=== PATIENT | male | born 1940 | race Caucasian/White ===

== ENCOUNTER 2016-05-23 12:14 | Inpatient (IN) ==
--- NOTE | 2016-05-23 13:43 | PROVIDER DOCUMENTATION ---
HPI-General Adult - General Source: patient - History of Present Illness -Gen Adult Nature of Presenting Problems: Pt is 75 y/o M presents to the ED with L lower leg swelling. Pt denies pain to L leg. Pt denies N/V/D. Pt states having prostate sx 9 days ago. Pt states has a urinary leg bag and always ties bad to L leg. Location of Pain/Injury: reports: none Pain Radiation: reports: no radiation Quality of Pain: reports: none Onset/Duration: reports: 2 days ago Timing: reports: still present Context/Activities at Onset: reports: light activity Modifying Factors: improves with: nothing Associated Symptoms: reports: swelling/mass in abdomen (swelling to L lower leg) . denies: anxiety, arm pain, back/neck pain, chest pain, constipation, cough, diaphoresis, diarrhea, dizziness, EENT symptoms, fatigue, fever/chills, genitourinary problems, headaches, heartburn, joint pain, loss of appetite, malaise, muscle aches, sinus congestion/drainage, nausea, rash, seizure, shortness of breath, sensory/motor loss, pain with inspiration, syncope, weakness, trouble walking Similar Symptoms Previously?: Yes Recently seen or treated by another doctor?: No <Caprice Ruff - Last Filed: 05/23/16 15:23> <Marcelino Lezama - Last Filed: 06/01/16 11:37> - General Chief Complaint: For Procedure Stated Complaint: LEFT LEG PAIN Time Seen by Provider: 05/23/16 12:35 Allergies/Adverse Reactions: Patient Allergies Allergy/AdvReac Type Severity Reaction Status Date / Time No Known Allergies Allergy Verified 05/23/16 13:18 Home Medications: Home Medication List Medication Instructions Recorded Confirmed Last Taken Type Amlodipine [Norvasc] 10 mg PO DAILY 05/23/16 05/23/16 05/23/16 08:00 History Atenolol 50 mg PO DAILY 05/23/16 05/23/16 05/23/16 08:00 History Lisinopril 5 mg PO DAILY 05/23/16 05/23/16 05/23/16 08:00 History Metformin E.r. [Glucophage Xr] 1,000 mg PO QHS 05/23/16 05/23/16 05/22/16 21:00 History Simvastatin 40 mg PO QHS 05/23/16 05/23/16 05/22/16 21:00 History Warfarin [Coumadin] 4 mg PO QHS #30 tablet 05/29/16 Unknown Rx Review of Systems - Adult - REVIEW OF SYSTEMS - ADULT Constitutional: denies: chills, fever Eyes: denies: blurred vision, double vision Ears, Nose, Mouth & Throat: denies: ear pain, nose pain, throat pain Cardiovascular: denies: chest pain, heart murmur, irregular heart rate Respiratory: denies: cough, shortness of breath, wheezing Gastrointestinal: denies: abdominal pain, diarrhea, nausea, vomiting Genitourinary: denies: dysuria, hematuria Musculoskeletal: denies: bone pain, joint pain, neck pain Integumentary: denies: hives, itching Neurological: denies: dizziness/vertigo, headache/migraines Psychiatric: reports: no symptoms reported Endocrine: reports: no symptoms reported Hematologic/Lymphatic: reports: no symptoms reported Allergic/Immunologic: reports: no symptoms reported All Other Systems: Reviewed and Negative <Caprice Ruff - Last Filed: 05/23/16 15:23> Past History - Adult - PAST MEDICAL HISTORY-ADULT Review of Records: reports: Nursing Assessment Review, Medications Reviewed, Social history reviewed & non-contributory. Major Childhood Illnesses: reports: denies history Cardiovascular: reports: HTN, hyperlipidemia Respiratory: reports: denies history Gastrointestinal: reports: denies history Obstetrical/Gynecological: reports: denies history Genitourinary: reports: prostate cancer Musculoskeletal: reports: denies history Neurological: reports: denies history Endocrine/Immune: reports: Diabetes Other Conditions: reports: denies history - PRIOR SURGERIES/PROCEDURES Surgical/Procedure History: reports: reviewed, not pertinent - IMMUNIZATION STATUS Childhood Immunizations: See Nurse Assessment Flu Vaccine: See Nurse Assessment - FAMILY HISTORY Family History: reviewed, not pertinent - SOCIAL HISTORY Smoking: denies Substance Use: denies Living Situation: family <Caprice Ruff - Last Filed: 05/23/16 15:23> Physical Exam-General - PHYSICAL EXAM-ADULT Initial Vital Signs Reviewed: Yes - CONSTITUTIONAL General Appearance: appears well, alert, no apparent distress - EYES Eyes: PERRL/EOMI, pink conjunctivae, fundi clear, no AV nicking - HEAD, EARS, NOSE, MOUTH & THROAT HENMT: normocephalic/atraumatic, moist mucous membranes, normal ENT inspection, TMs normal, pharynx normal - NECK Neck: non-tender, full range of motion, supple, normal inspection - RESPIRATORY Respiratory: chest non-tender, lungs clear, normal breath sounds, no pleuratic chest pain, no respiratory distress, no accessory muscle use - CARDIOVASCULAR Cardiovascular: normal peripheral pulses, regular rate, rhythm, no edema, no gallop, no JVD, no murmur - GASTROINTESTINAL (ABDOMEN) Abdominal Exam: normal bowel sounds, non tender, soft, no organomegaly, no pulsatile mass - LYMPHATIC Lymphatic: no adenopathy - MUSCULOSKELETAL Back Exam: normal inspection, no CVA tenderness, no vertebral tenderness Extremity: normal range of motion, non-tender, normal gait, no calf tenderness, normal capillary refill, swelling (L lower leg) - SKIN Integumentary: normal color, normal turgor, warm/dry - NEUROLOGIC Neurologic: grossly normal - PSYCHIATRIC Psych/Mental Status: normal mood/affect, oriented x 3 <Caprice Ruff - Last Filed: 05/23/16 15:23> Progress - PLAN OF CARE/RESULTS Progress/Plan/Lab Results: Orders Category Date Time Status Venous U/S Bilateral Legs [CV] Stat Ther 05/23/16 12:34 Ordered Vital Signs - 24 hr 05/23/16 12:23 Temperature 97.7 F Pulse Rate 67 Respiratory 17 Rate Blood Pressure 125/46 O2 Sat by Pulse 100 Oximetry - ULTRASOUND (By Radiology) 1 US Study: other (venous bilateral) Impression: Abnormal US Results: bilateral DVT per US - CONSULTS/PCP/HOSPITALIST Notification #1 *Consult/PCP/Hospitalist*: Dr. Wells Time Discussed: 15:24 (Dr. Wells accepted admit ) Reason/Comments: Dr. Nuno consulted with Dr. Wells about admit Consult Disposition: Admit <Caprice Ruff - Last Filed: 05/23/16 15:23> Departure <Caprice Ruff - Last Filed: 05/23/16 15:23> - Departure Time of Disposition Order: 15:25 Certified Medical Emergency: Emergent <Marcelino Lezama - Last Filed: 06/01/16 11:37> - Departure DIAGNOSIS: DVT (deep venous thrombosis) Qualifiers: DVT location: lower extremity Affected thrombotic vein of extremity: other lower extremity vein Laterality: bilateral Chronicity: acute Qualified Code(s): I82.493 - Acute embolism and thrombosis of other specified deep vein of lower extremity, bilateral Disposition: ADMITTED INPATIENT 09 Condition: Stable Attestation - Scribe Verification/Attestation Scribe:: Caprice Ruff Acting as Scribe for:: Kevin Nuno Scribe documention review:: This chart was documented by a scribe and accurately reflects the service the provider performed and the decisions made by the provider. <Caprice Ruff - Last Filed: 05/23/16 15:23> - Scribe Verification/Attestation Scribe:: Marcelino Lezama Acting as Scribe for:: Kevin Nuno Scribe documention review:: This chart was documented by a scribe and accurately reflects the service the provider performed and the decisions made by the provider. <Marcelino Lezama - Last Filed: 06/01/16 11:37> Physician Attestation - Physician Attestation I, the provider, attest to the following statement:: Kevin Nuno Physician documentation Attestation:: This documentation recorded by the scribe accurately reflects the service I personally performed and the decisions made by me. <Marcelino Lezama - Last Filed: 06/01/16 11:37>
[2016-05-23] MEDS ORDERED: LOVENOX 1 MG/KG SUBQ SCH (15:25)
[2016-05-23] MEDS ORDERED: LOVENOX ONE (15:53)
[2016-05-23] MEDS ORDERED: GLUCOPHAGE XR PO SCH (17:00)
[2016-05-23] MEDS: LOVENOX SUBQ SCH (17:15)
[2016-05-23] MEDS: NS 1,000 ML IV SCH (18:07)
--- NOTE | 2016-05-23 18:12 | HISTORY AND PHYSICAL ---
HISTORY OF PRESENT ILLNESS: Mr. Chaves had prostatectomy I believe done by Dr. Dodson a week ago Wednesday which would be 8 days ago this is Wednesday and was doing well. He has a leg bag catheter. He notice though about 3 or 4 days ago some pain in the left leg. He had a little bit of pain postop but the left calf and some in the right and a little bit of swelling on the left side. He has not had any shortness of breath. No pleuritic pain. No fever or chills. He had a little tenderness or pain in the calf and he called his friend Dr. Newell who wanted him to get checked out. Dr. Szymanski saw him in the emergency room and he had an echocardiogram done and he really had extensive clot especially in the left leg but in both legs lower extremities up to the proximal thigh and extensive clot load. PAST MEDICAL HISTORY: 1. Diabetes mellitus type 2. 2. Hypertension. 3. I believe questionable hypercholesterolemia. PAST SURGICAL HISTORY: He has really not had any other surgeries done. ALLERGIES: He is not allergic to anything. No known drug allergies. FAMILY HISTORY: Noncontributory. SOCIAL HISTORY: Negative for alcohol or tobacco. , lives in [place]. The is at bedside. REVIEW OF SYSTEMS: General: No weight gain, loss. No fever, chills. HEENT: Unremarkable. Respiratory: No increased work of breathing or dyspnea. Cardiovascular: No chest pain or tachy palpitation. GI: Unremarkable. : Unremarkable other than his prostate surgery described above and Johns catheter placed. Endocrinologic, hemologic: No significant history. EXAM: Vital signs: Today temperature 97.7 degrees, pulse 67, respirations 17, blood pressure 125/46. HEENT: Pupils are equal, round, reactive. CVP less than 6 cm. Lungs: Clear in all lung padron. Cardiovascular: Regular rhythm, rate without murmur or S3. Abdomen: Soft. Skin: Warm and dry. Extremities: He has a Johns catheter in place attached to left leg bag. I do not appreciate any Homans sign. He really does not complain of any tenderness on palpation around the calf and there is really minimal swelling on the left compared to the right, no pitting edema. Height 5 feet 9 inches. Weight 156 pounds. O2 saturation 100% on room air. MEDICATIONS AT HOME: He is on amlodipine 10 mg a day, atenolol 50 mg daily, lisinopril 5 mg a day, metformin ER 500 mg b.i.d., simvastatin 40 mg daily. ASSESSMENT AND PLAN: 1. Deep vein thrombosis left lower leg and I believe the report was some on the right. Plan to admit and start him on subcu Lovenox 1 mg/kg. Will plan on sending him home on Xarelto which case will probably load him with 20 mg twice a day for 21 days and then 15 mg daily following that. 2. Status post prostatectomy. Will continue his Johns catheter and keep his bag, try and keep his bag lower than his body, take it off his leg at this time. 3. Hypertension. Continue present blood pressure medicines. He is on Norvasc and atenolol, lisinopril. 4. Diabetes mellitus 2. Will check blood sugars, continue his metformin. 5. Hypercholesterolemia. Continue on simvastatin. 6. Will try and elevate his both legs, see if we can get [facility] to [facility].
--- NOTE | 2016-05-23 20:55 | Extremity Venous Study ---
PROCEDURE NAME: Venous U/S Bilateral Legs - 05/23/2016 BILATERAL LOWER EXTREMITY VENOUS IMAGE STUDY: REFERRING PHYSICIAN: Dr. Szymanski and Dr. Sanchez. CUSTOM APPLICATOR: Rianna. INTERPRETING PHYSICIAN: Dr. Szymanski. FINDINGS: The patient is 9 days post prostatectomy and has had left lower extremity swelling on imaging the common femoral, superficial femoral, deep femoral, popliteal, posterior tibial, peroneal, and greater saphenous are imaged bilaterally. The Doppler is used to evaluate the veins for spontaneity, phasicity, respiratory and distal augmentation. There is a thrombosis of the superficial femoral vein on the left extending down to the calf there is also a nonocclusive echogenic material within the right superficial femoral vein. INTERPRETATION: Deep venous thrombosis with complete occlusion of the left superficial femoral vein and partial occlusion of the right distal superficial femoral vein. The patient was taken back to the emergency department and the hospitalist was notified.
[2016-05-23] MEDS: GLUCOPHAGE XR PO SCH (21:25)
[2016-05-23] MEDS: ZOCOR PO SCH (21:25)
[2016-05-24] MEDS: LOVENOX SUBQ SCH ×2 (04:20→16:33)
[2016-05-24] MEDS: NS 1,000 ML IV SCH ×2 (04:21→16:33)
[2016-05-24 05:25] LABS: MANUAL DIFF NEEDED? NO
[2016-05-24 05:31] LABS: BASO% 0.1 % (0.0-0.8); EOS# 0.09 X1000 (0.0-0.7); HEMATOCRIT 35.4 % (42.0-52.0); HEMOGLOBIN 11.9 g/dL (14.0-18.0); IMM GRAN# 0.02 X1000 (0.0-0.04); IMM GRAN% 0.2 % (0.0-0.5); LYMPH# 1.29 X1000 (1.2-3.4); LYMPH% 14.4 % (20.5-51.1); MCH 31.1 PG (27-31); MCHC 33.6 g/dL (33-37); MCV 92.4 FL (81-99); MONO# 0.96 X1000 (0.11-0.59); MONO% 10.7 % (1.7-9.3); MPV 10.8 FL (7.4-10.4); NEUT% 73.6 % (42.2-75.2); PLT 194 X1000 (130-400); RBC 3.83 XMIL (4.7-6.1)
[2016-05-24 05:38] LABS: INR 1.07; PROTIME 11.4 Seconds (9.2-11.7)
[2016-05-24 05:43] LABS: AGAP 13; ALBUMIN 3.4 g/dL (3.5-5.0); ALKALINE PHOSPHATASE 72 U/L (32-122); BUN 15 mg/dL (8-22); CALCIUM 8.8 mg/dL (8.8-10.2); CHLORIDE 105 mmol/L (98-107); COSMO 285; GOT 13 U/L (10-34); GPT 10 U/L (10-44); MAGNESIUM 1.8 mg/dL (1.5-2.7); SODIUM 142 mmol/L (136-145); TCO2 24 mmol/L (25-35); TOTAL BILIRUBIN 0.53 mg/dL (0.20-1.00)
--- NOTE | 2016-05-24 06:54 | EKG Report ---
Test Performed on : 05/24/2016 06:03:41 AM Test Reason : chest pain Blood Pressure : / mmHG Vent. Rate : 072 BPM Atrial Rate : 072 BPM P-R Int : 176 ms QRS Dur : 084 ms QT Int : 426 ms P-R-T Axes : 052 -19 024 degrees QTc Int : 466 ms Normal sinus rhythm. Normal ECG No previous ECGs available Confirmed by Russell MARTINEZ, Chinmay Andino ([id number]) on 05/26/2016 1:36:06 PM
[2016-05-24] MEDS: NORVASC PO SCH (08:19)
[2016-05-24] MEDS: COLACE PO SCH ×2 (08:19→20:50)
[2016-05-24] MEDS: TENORMIN PO SCH (08:19)
[2016-05-24] MEDS: PRINIVIL PO SCH (08:19)
[2016-05-24] MEDS ORDERED: ZOCOR PO SCH (09:00)
[2016-05-24] MEDS ORDERED: MILK OF MAGNESIA PO ONE (11:18)
[2016-05-24] MEDS ORDERED: DULCOLAX PR PRN (11:19)
--- NOTE | 2016-05-24 11:58 | PROGRESS NOTE ---
DATE: 05/24/2016 SUBJECTIVE: He did not sleep much last night. He said that someone was always coming in to bother him. He did have some bleeding and some blood in the Johns catheter. This seems to be clearing. It is more diluted, a little darker. He is getting urine output. I told him that he could sit up in a chair and he can ambulate to the bathroom. He has not had a bowel movement since Wednesday, so that would be a couple days. So I will give him some Milk of Magnesia and Dulcolax suppository if he needs it. OBJECTIVE: Vital Signs: Afebrile, temperature 99 degrees, pulse 69, respirations 15, blood pressure 132/55. HEENT: Pupils are equal, round, react to light and accommodation. Oral and nasal mucosa unremarkable. Conjunctivae pink. Sclerae clear. Tympanic membranes intact. Neck: Supple without adenopathy or thyromegaly. Urine output has been 975 mL. I Os the balance has been positive 397. ASSESSMENT AND PLAN: 1. Extensive deep venous thrombosis, so will start him on Lovenox bridging to Xarelto. It is what he wants to use. Noted his electrocardiogram is normal. No sign of strain pattern. No sign of pulmonary thromboemboli/ Dr. Szymanski has read venous study, deep venous thrombosis with complete occlusion of left superficial femoral vein and partial occlusion of the right distal superficial femoral vein. The patient was taken back to the emergency department and after that was admitted. 2. Recent surgery of his prostate. Prostatectomy per Dr. Enriquez. He is having some gross hematuria, but seems to be improving.
[2016-05-24] MEDS: TYLENOL PO PRN ×2 (16:33→23:09)
--- NOTE | 2016-05-24 17:22 | CONSULTATION ---
DATE OF CONSULTATION: 05/24/2016 ATTENDING AND REFERRING PHYSICIAN: Hospitalist (Dr. Wright). HISTORY OF PRESENT ILLNESS: This 75-year-old male is about 9 days status post laparoscopic robot- assisted radical retropubic prostatectomy. At another facility. He has an indwelling Johns catheter. He states he was doing well until several days ago when he started having some pain in the left leg and some swelling. He underwent Doppler venous study that revealed bilateral lower extremity clot left side much worse than right. He was admitted for observation and anticoagulation. He and his state that early this morning he had dark blood in his urine. He states it is clearing at present. He states he has not had any problems after surgery. He states he has never had a major surgery previously and has not had any problem with blood clots. He has no history of kidney stones or other urologic problems. PAST MEDICAL HISTORY: Diabetes, hypertension, elevated cholesterol. CURRENT MEDICATIONS: Documented on the chart and include Lovenox. SOCIAL HISTORY: No tobacco or alcohol use. ALLERGIES: No known drug allergies. REVIEW OF SYSTEMS: He states he did have his wisdom teeth extracted many years ago. He denies any problems with chest pains, problems breathing, pulmonary or bowel problems. PHYSICAL EXAMINATION: General: A thin, age apparent, normally developed, white male, oriented in all ways and cooperative. HEENT: Normal for age. Lungs: Clear. Cardiovascular: Regular rate and rhythm. Abdomen: Mildly protuberant, soft. Dressings are in place from his recent surgery and are dry. : Normal male. Johns catheter in place. Both testes down and palpably normal. Rectal Exam: Deferred secondary to recent surgery. Extremities: No C, C or E. Neuro: No focal deficits. LABORATORY EVALUATION: He has a white count of 8.98, hemoglobin 11.9, hematocrit of 35.4, platelets are 194,000. Serum electrolytes are normal. BUN 15, creatinine 0.7. Serum glucose was 122. Urine output at present is clear. IMPRESSION: 1. Patient with history of prostate cancer status post recent robot-assisted radical retropubic prostatectomy. 2. Deep venous thrombosis. RECOMMEND: Continue anticoagulation. Discussed with patient and that after surgery bleeding can occur and as long as the urine is flowing the anticoagulation needs to continue. They seem to understand and desire to proceed. His Johns catheter is scheduled to be removed on the 28 of May at his followup appointment. If he is still hospitalized at that time will remove Johns catheter here. Thank you for this consultation.
[2016-05-24] MEDS: GLUCOPHAGE XR PO SCH (20:50)
[2016-05-24] MEDS: ZOCOR PO SCH (20:50)
[2016-05-25] MEDS ORDERED: PNEUMOVAX 23 IM ONE (00:01)
[2016-05-25] MEDS ORDERED: MORPHINE IV PRN (02:24)
[2016-05-25] MEDS: NS 1,000 ML IV SCH ×3 (02:35→19:59)
[2016-05-25] MEDS: LOVENOX SUBQ SCH ×3 (04:51→17:50)
[2016-05-25 05:17] LABS: MANUAL DIFF NEEDED? NO
[2016-05-25 05:35] LABS: BASO% 0.1 % (0.0-0.8); HEMATOCRIT 32.3 % (42.0-52.0); HEMOGLOBIN 11.3 g/dL (14.0-18.0); IMM GRAN# 0.03 X1000 (0.0-0.04); IMM GRAN% 0.3 % (0.0-0.5); LYMPH# 1.05 X1000 (1.2-3.4); MCH 31.9 PG (27-31); MCV 91.2 FL (81-99); MONO# 0.96 X1000 (0.11-0.59); MONO% 8.2 % (1.7-9.3); MPV 10.7 FL (7.4-10.4); NEUT% 82.4 % (42.2-75.2); PLT 221 X1000 (130-400); RBC 3.54 XMIL (4.7-6.1)
--- NOTE | 2016-05-25 08:17 | PROGRESS NOTE ---
DATE: 05/25/2016 SUBJECTIVE: He is having more pain. It started about 5 o'clock yesterday. He states it is deep pain inside, on the sides of the rectum. OBJECTIVE: Rectal: I did a rectal exam and there is no tenderness anywhere down there, but he has pain on the sides, deep inside. It seems to come and go but certain positions especially when he tries to stand up it hurts. He was able to sit down on the bedside commode without any pain. : He still has some dark blood in the Johns. I did irrigate the Johns a little bit. His urine output seems to be good, 1525 yesterday. His I's and O's are positive about 1200 mL. LAB: From this morning, white count 11,650, hematocrit 32, platelet count 221,000. Blood sugars 125, 185, 167. ASSESSMENT AND PLAN: 1. History of prostate cancer status post robotic-assisted radical retropubic prostatectomy. He has some pain and, of course, the concern is whether he could have a deep hematoma. His hematocrit looks stable; does not appear to be dropping. We will discuss with Dr. Kenney Siu. 2. Deep venous thrombosis. He had a venous study on 05/23. Complete occlusion of left superficial femoral vein and partial occlusion of the right distal superficial femoral vein. He is on anticoagulants with Lovenox. I do not think we have any choice but to continue this. Will discuss with Dr. Siu further plans. He has had bowel movements. He is on Docusate 100 mg b.i.d. He is on metformin 100 mg p.o. at bedtime, Zocor 40 mg at bedtime. He is getting the Lovenox 70 mg subcutaneously q.12, Tenormin 50 mg daily, Prinivil 5 mg daily, Norvasc 10 mg daily.
[2016-05-25] MEDS: NORVASC PO SCH (08:44)
[2016-05-25] MEDS: TENORMIN PO SCH (08:44)
[2016-05-25] MEDS: PRINIVIL PO SCH (08:44)
[2016-05-25] MEDS: COLACE PO SCH ×2 (08:45→20:00)
[2016-05-25] MEDS: HUMULIN R SUBQ SCH ×3 (11:59→20:03)
[2016-05-25] MEDS: ZOFRAN IV PRN (16:59)
[2016-05-25] MEDS: GLUCOPHAGE XR PO SCH (20:00)
[2016-05-25] MEDS: ZOCOR PO SCH (20:00)
[2016-05-25] MEDS: COUMADIN PO SCH (20:04)
[2016-05-26] MEDS: NS 1,000 ML IV SCH ×2 (05:37→22:12)
[2016-05-26] MEDS: LOVENOX SUBQ SCH ×2 (05:38→17:12)
[2016-05-26] MEDS: HUMULIN R SUBQ SCH ×4 (05:59→20:08)
[2016-05-26] MEDS: ZOFRAN IV PRN (08:04)
[2016-05-26] MEDS: COLACE PO SCH ×2 (09:11→20:05)
[2016-05-26] MEDS: TENORMIN PO SCH (09:11)
[2016-05-26] MEDS: NORVASC PO SCH (09:11)
[2016-05-26] MEDS: PRINIVIL PO SCH (09:11)
--- NOTE | 2016-05-26 12:43 | PROGRESS NOTE ---
DATE: 05/26/2016 SUBJECTIVE: He still has some blood in the catheter that seems a little less intense, card fixer color. He had no pain. He had a good night last night and no complaints. He does have a little bit of bleeding around the urethral meatus, but he has had that since the surgery, by his report. OBJECTIVE: Vital signs: Temperature 98.8 degrees, pulse 76, respirations 14, blood pressure 137/50. CVP less than 6 cm. Lungs: Clear in all lung padron. Cardiovascular: Regular rhythm and rate, without murmur or S3. Abdomen: Soft. Skin: Warm and dry. URINE OUTPUT: 1800 mL. LABORATORIES: Reviewed from 05/25/2016. Blood sugars 150, 168, 129. Hematocrit was 32. So I will probably check another CBC and basic metabolic tomorrow. ASSESSMENT AND PLAN: Patient is status post prostate resection with robotic assisted radical retropubic prostatectomy and presented with a deep venous thrombosis. Continue Lovenox. We decided to use Coumadin for a little more control. He still has some gross hematuria, which looks like it is a little better. He has good urine output. We will check a CBC and basic metabolic again tomorrow. The thought is maybe to pull his catheter on . Will discuss with Dr. Siu.
[2016-05-26] MEDS ORDERED: MIRALAX PO ONE (17:30)
[2016-05-26] MEDS: GLUCOPHAGE XR PO SCH (20:04)
[2016-05-26] MEDS: COUMADIN PO SCH (20:04)
[2016-05-26] MEDS: ZOCOR PO SCH (20:10)
[2016-05-27 05:32] LABS: MANUAL DIFF NEEDED? NO
[2016-05-27 05:45] LABS: BASO% 0.2 % (0.0-0.8); EOS# 0.19 X1000 (0.0-0.7); EOS% 2.1 % (0.0-10.0); HEMATOCRIT 26.6 % (42.0-52.0); HEMOGLOBIN 8.8 g/dL (14.0-18.0); IMM GRAN# 0.06 X1000 (0.0-0.04); IMM GRAN% 0.7 % (0.0-0.5); LYMPH# 1.88 X1000 (1.2-3.4); LYMPH% 20.8 % (20.5-51.1); MCHC 33.1 g/dL (33-37); MCV 93.7 FL (81-99); MONO% 9.9 % (1.7-9.3); MPV 10.2 FL (7.4-10.4); NEUT% 66.3 % (42.2-75.2); PLT 265 X1000 (130-400); RBC 2.84 XMIL (4.7-6.1)
[2016-05-27] MEDS: LOVENOX SUBQ SCH ×2 (05:51→17:38)
[2016-05-27] MEDS: HUMULIN R SUBQ SCH ×4 (06:06→22:20)
[2016-05-27 06:08] LABS: CALCIUM 8.2 mg/dL (8.8-10.2); MAGNESIUM 1.9 mg/dL (1.5-2.7)
[2016-05-27] MEDS ORDERED: MIRALAX PO PRN (09:00)
--- NOTE | 2016-05-27 09:29 | PROGRESS NOTE ---
DATE: 05/27/2016 SUBJECTIVE: Mr. Chaves's urine appears to be clearing. He had a good night. No pain. Feeling much better. PHYSICAL EXAMINATION: Vital Signs: Temperature 98.6 degrees, pulse 69, respirations 14, blood pressure 116/56. HEENT: Pupils equal and round. CVP less than 6 cm. Lungs: Clear in all lung padron. Cardiovascular Examination: Regular rhythm and rate without murmur or S3. Abdomen: Soft. Skin: Is warm and dry. Is and Os: Urine output 1500 mL. LAB: White count 9050, hematocrit 26, platelet count 265,000. Sodium 141, potassium 4, chloride 107, bicarb 22, BUN 21, creatinine 1.3. Blood sugar 185, 110, and 125. ASSESSMENT AND PLAN: 1. Status post prostate resection, robotic assisted radical retropubic prostatectomy and then presented with deep venous thrombosis bilateral, on Coumadin and Lovenox with bridging to Coumadin. Here, he was having some gross hematuria which appears to be clearing and it is very encouraging. Prothrombin time was 11.4. He is on Coumadin 7.5 at bedtime. He appears to be improving. We will see if maybe we can get the catheter out tomorrow and increase his activity. He is eating well. 2. Blood sugars are doing well. Urine output is good. I do not see anything that I would change in his orders. He is on a stool softener.
[2016-05-27] MEDS: PRINIVIL PO SCH (09:37)
[2016-05-27] MEDS: NORVASC PO SCH (09:37)
[2016-05-27] MEDS: TENORMIN PO SCH (09:37)
[2016-05-27] MEDS: COLACE PO SCH ×2 (09:37→20:01)
[2016-05-27] MEDS: NS 1,000 ML IV SCH ×2 (11:43→22:14)
[2016-05-27] MEDS: COUMADIN PO SCH (20:01)
[2016-05-27] MEDS: GLUCOPHAGE XR PO SCH (20:01)
[2016-05-27] MEDS: ZOCOR PO SCH (22:25)
[2016-05-28] MEDS: LOVENOX SUBQ SCH (05:20)
[2016-05-28] MEDS: HUMULIN R SUBQ SCH ×4 (06:31→21:00)
[2016-05-28] MEDS: COLACE PO SCH ×2 (08:14→20:57)
[2016-05-28] MEDS: PRINIVIL PO SCH (08:14)
[2016-05-28] MEDS: TENORMIN PO SCH (08:14)
[2016-05-28] MEDS: NORVASC PO SCH (08:14)
[2016-05-28] MEDS: NS 1,000 ML IV SCH ×2 (08:16→09:27)
[2016-05-28 08:39] LABS: INR 1.93; PROTIME 21.1 Seconds (9.2-11.7)
[2016-05-28] MEDS ORDERED: COUMADIN PO SCH (09:30)
--- NOTE | 2016-05-28 10:01 | PROGRESS NOTE ---
DATE: 05/28/2016 SUBJECTIVE: His urine is clear. He has had a good night, no pain. He said the bleeding around the meatus catheter has diminished. OBJECTIVE: Vital signs: Afebrile, temp 98.7, pulse 71, respirations 16, blood pressure 131/52. HEENT: Pupils are equal, round, and reactive. Lungs: Clear in all lung padron. Cardiovascular: Regular rhythm and rate without murmur or S3. Abdomen: Soft. Skin: Warm and dry. Urine output 500 mL. LAB: White count 9050, hematocrit 26, platelet count 265,000. Blood sugars 142, 135, 129. Last creatinine was 1.3. ASSESSMENT AND PLAN: Status post prostate resection, robot-assisted radical retropubic prostatectomy, and presented with deep venous thrombosis bilaterally. He is on the Lovenox, is bridging to Coumadin. Pro time this morning was 21. Will cut his Coumadin down to 4 mg at bedtime. Expect Dr. Siu will probably take the catheter out today. His leg is softer, and he may get to go home tomorrow.
[2016-05-28] MEDS: ZOCOR PO SCH (20:57)
[2016-05-28] MEDS: GLUCOPHAGE XR PO SCH (20:57)
[2016-05-29] MEDS: NS 1,000 ML IV SCH (02:41)
[2016-05-29 05:31] LABS: INR 1.84; PROTIME 20.1 Seconds (9.2-11.7)
[2016-05-29] MEDS: HUMULIN R SUBQ SCH (06:51)
[2016-05-29 08:07] VITALS: BP 142/56
[2016-05-29] MEDS: TENORMIN PO SCH (08:51)
[2016-05-29] MEDS: NORVASC PO SCH (08:51)
[2016-05-29] MEDS: COLACE PO SCH (08:51)
[2016-05-29] MEDS: PRINIVIL PO SCH (08:51)
--- NOTE | 2016-05-29 22:53 | DISCHARGE SUMMARY ---
ADMISSION DATE: 05/23/2016 DISCHARGE DATE: 05/29/2016 HOSPITAL COURSE: He had a prostatectomy approximately 7 or 8 days before presentation and he was doing well. He had a leg bag catheter but noticed about 3 or 4 days before presenting, on 05/19 or so, he had some pain in the left leg and then noticed a little bit of swelling. He talked to his friend Dr. Newell who had him go to the emergency room. Dr. Szymanski evaluated. Noninvasive venous studies were done and found a deep venous thrombosis. He had complete occlusion of the left superficial femoral vein and partial occlusion of the right distal superficial femoral vein. He was admitted and started on Lovenox. He had some gross hematuria. A Johns catheter was left in place. He did have a little bit of a deep rectal pain and this resolved. The gross hematuria resolved. Dr. Kenney Siu followed patient and we discontinued his Johns catheter on 05/28/2016. He is voiding often but doing well. No sign of blood. He was having a little bleeding around the meatus as well but that seems to have resolved and he had some troubles with constipation which also resolved. We decided to put him on Coumadin so we could have a little better control of his extensive anticoagulation. His pro time was 2. I am going to let him go home on Coumadin 4 mg at bedtime. He will follow with Dr. Lee. I instructed to get pro times checked once a week for 4 weeks and then once a month. Anticipate he will need anticoagulation at least 6 months. He should also follow up with Dr. Enriquez from Urology. DISCHARGE MEDICATIONS: He will go home on Norvasc 10 mg a day, Tenormin 50 mg a day, Colace 100 mg b.i.d., lisinopril 5 mg a day, metformin 100 mg at bedtime, MiraLAX 17 g p.o. daily p.r.n., Zocor 40 mg a day and Coumadin at 4 mg daily.
== END 2016-05-29 10:41 | disposition home or self-care (01) ==
LOC: ED 12:14 → 3S 17:12
PROVIDERS: ATTEND Emergency Medicine